=== PATIENT | female | born 1995 | race Asian ===

== ENCOUNTER 2017-11-26 18:50 | Emergency (ER) | payer SELFPAY ==
[~2017-11-26] VITALS: Ht 162.6 cm; Wt 65.8 kg
[2017-11-26 19:32] VITALS: BP 141/101; Ht 162.6 cm; Wt 65.8 kg
== END 2017-11-26 21:02 | disposition left against medical advice (07) ==
LOC: ED 18:50
DX: Z53.21 Procedure and treatment not carried out due to patient leaving prior to being seen by health care provider (principal)

== ENCOUNTER 2017-11-27 10:54 | Emergency (ER) | payer OTHER ==
[~2017-11-27] VITALS: Ht 165.1 cm; Wt 66.7 kg
[2017-11-27 11:36] VITALS: BP 117/69; Ht 165.1 cm; Wt 66.7 kg
== END 2017-11-27 16:40 | disposition home or self-care (01) ==
LOC: ED 10:54
DX: J02.9 Acute pharyngitis, unspecified (principal); J40 Bronchitis, not specified as acute or chronic